=== PATIENT | female | born 1995 | race Caucasian/White ===

== ENCOUNTER 2017-09-14 16:51 | Emergency (ER) | payer OTHER ==
[~2017-09-14 16:51] MED LIST: IBUP-103 PO
[2017-09-14] MEDS ORDERED: ONDANSETRON INJ 2 MG/ML 2 ML VIAL IV STA (18:11)
[2017-09-14] MEDS ORDERED: KETOROLAC TROMETHAMINE 30 MG/ML VIAL IV STA (18:11)
[2017-09-14] MEDS ORDERED: SODIUM CHLORIDE 0.9% 1000ML 1,000 ML IV STA (18:11)
[2017-09-14] MEDS ORDERED: ONDA4TAB10 SL (20:54)
[2017-09-14 21:00] VITALS: BP 115/84; PULSE 94; TEMP 37.5; O2SAT 100
[2017-09-14] MEDS ORDERED: ONDANSETRON HOME PACK 4MG OD TAB PO ONE (21:00)
--- NOTE | 2017-09-14 22:04 | EMERGENCY ROOM VISIT NOTE ---
History First contact with patient: 17:55 Chief Complaint: FLU LIKE SX Stated Complaint: FEVER,TREVINO,VOMITTING,MUSCLE PAIN History of Present Illness The patient is a 21 year old female who presents to the Emergency Room with complaints of fever, headache, nausea, myalgias, fatigue and overall not feeling well. The patient reports that her symptoms started approximately 48 hours ago. She was seen at the [facility] urgent care center this morning and diagnosed with influenza type pain. She was provided a prescription for Tamiflu , but was unable to keep her medication down this afternoon. She rates her overall discomfort a 9 out of 10. The patient did not receive her influenza immunization this year. Review of Systems 10 system review was performed and was negative except for pertinent positives and negatives as indicated in history of present illness Past Medical/Surgical History Medical Problems: (1) No chronic problems Family History No significant family history Social History Smoking Status: Never Smoker Drug Use: none Marital Status: single Housing Status: unknown Occupation Status: [employer] student Current/Historical Medications Scheduled Ondasetron Odt (Zofran Odt), 4 MG SL Q6H Scheduled PRN Ibuprofen Tab (Advil), 200-600 MG PO Q4H PRN for Pain or Fever Physical Exam Vital Signs Date Time Temp Pulse Resp B/P (MAP) Pulse Ox O2 Delivery O2 Flow Rate FiO2 09/14/17 21:00 37.5 94 18 115/84 100 09/14/17 17:50 118 18 106/70 100 Room Air 09/14/17 16:59 39.2 120 16 107/69 97 Room Air Physical Exam CONSTITUTIONAL: Healthy and well nourished. Alert and oriented X 3 with positive affect. Patient appears a mild to moderate discomfort. HEENT: Normocephalic, atraumatic. Pupils equal, round and reactive. Ears and nares are clear. OROPHARYNX: Mucous membranes are dry. Mild posterior pharyngeal erythema is noted without tonsillar hypertrophy or exudates. LYMPHATICS: No posterior or anterior cervical chain adenopathy. NECK: Full active range of motion without discomfort. No nuchal rigidity or meningeal signs. RESPIRATORY: Clear to auscultation bilaterally with no wheezing, crackles, rhonchi or stridor. CARDIOVASCULAR: Tachycardic with no murmurs, rubs or gallops. GASTROINTESTINAL: Bowel sounds present in all quadrants. Soft and nontender to palpation. MUSCULOSKELETAL: Full range of motion of all joints without discomfort. INTEGUMENTARY: No rash or other significant dermatologic conditions noted. NEUROLOGIC: No focal neurologic deficits noted. Medical Decision & Procedures Medications Administered Medications (Trade) Dose Ordered Sig/Volodymyr Route Start Time Stop Time Status Last Admin Dose Admin Sodium Chloride 1,000 ml @ 999 mls/hr Q1H1M STAT IV 09/14/17 18:11 09/14/17 19:11 DC 09/14/17 19:04 999 MLS/HR Ketorolac Tromethamine (Toradol Inj) 30 mg NOW STAT IV 09/14/17 18:11 09/14/17 18:12 DC 09/14/17 19:04 30 MG Ondansetron HCl (Zofran Inj) 4 mg NOW STAT IV 09/14/17 18:11 09/14/17 18:12 DC 09/14/17 19:03 4 MG Ondansetron HCl (ZOFRAN ODT 4MG Home Pack) 1 homepack UD ONCE PO 09/14/17 21:00 09/14/17 21:01 DC 09/14/17 20:56 1 HOMEPACK ED Course Patient history and physical exam were performed. Nurse's notes were reviewed. Vital signs were reviewed, showing an oral temperature of 39.2C with a heart rate of 120. O2 saturation is 97% on room air. The patient is normotensive. I did recommend symptomatic relief with parenteral hydration, Toradol and Zofran. Patient was in agreement. IV access was established, and the patient was administered a liter normal saline bolus, along with Toradol 30 mg and Zofran 4 mg IVP. After 1 hour, the patient reported mild relief of her symptoms. Oral temperature at that time was 37.5C, and the patient felt well enough to go home. The patient was encouraged to continue with her Tamiflu. She will also be provided a home pack and prescription for Zofran ODT as needed for nausea. She was instructed to rest and remain well-hydrated. Alternate ibuprofen and Tylenol as needed for pain and fever. She was instructed to consider herself infectious until she has gone 24 hours without fever, and without use of antipyretics. She may return to the emergency department over the weekend for any progressively worsening symptoms. The patient was happy with plan of care, and voiced understanding of all discharge instructions. Medical Decision Medication Reconcilliation Current Medication List: was personally reviewed by me Blood Pressure Screening Patient's blood pressure: Normal blood pressure Impression Primary Impression: Influenza A Departure Information Prescriptions Ondasetron Odt (ZOFRAN ODT) 4 Mg Tab 4 MG SL Q6H for Nausea, #15 TAB Prov: Dustin Marte PA 09/14/17 Referrals No Doctor, Assigned (PCP) Patient Instructions My [facility]
== END 2017-09-14 21:01 | disposition home or self-care (01) ==
LOC: C.EDB 16:52
DX: J10.1 Influenza due to other identified influenza virus with other respiratory manifestations (principal); R50.9 Fever, unspecified; R51 Headache; R11.2 Nausea with vomiting, unspecified